=== PATIENT | male | born 1945 ===

== ENCOUNTER 2017-08-05 14:48 | Outpatient (CLI) | payer MEDICARE ==
--- NOTE | 2017-07-07 14:32 | XRay Report ---
Left knee: Pain. There is a total knee replacement which appears well applied to the respective femoral and tibial surfaces. Normal and no abnormal lucency. The visualized bones are well-mineralized. There is no swelling and/or effusion. No prior study for comparison. Impression: Knee prosthesis with no apparent complication.
--- NOTE | 2017-08-05 16:17 | XRay Report ---
XRAY RIGHT KNEE 3 THREE VIEWS: 08/05/17 14:48:00 CLINICAL: Right knee pain. FINDINGS: Moderately severe osteoarthritis with narrowing of the medial and lateral joint spaces and the patellofemoral joint with large osteophytes. 2 metal eren in the medial aspect of the proximal tibia and a surgical suture at the lateral aspect of the distal femur. No fracture or dislocation. No joint effusion.Soft tissue calcifications. IMPRESSION: Status post ACL graft repair. Moderately severe osteoarthritis.
== END 2017-08-05 14:49 | disposition home or self-care (01) ==
LOC: SPVIMAG 14:48
PROVIDERS: ATTEND Orthopaedic Surgery Sports Medicine
DX: M17.11 Unilateral primary osteoarthritis, right knee (principal); M25.562 Pain in left knee; Z98.890 Other specified postprocedural states; Z96.652 Presence of left artificial knee joint